=== PATIENT | male | born 1935 | race Caucasian/White ===

== ENCOUNTER 2021-07-09 05:16 | Inpatient (IN) ==
[2021-07-09 05:54] LABS: Basophils # 0.1 K/mcL (0.0-0.2); Basophils % 0.3 %; Eosinophils # 0.1 K/mcL (0.0-0.6); Eosinophils % 0.6 %; Hematocrit 29.2 % (37.5-50.1); Hemoglobin 9.2 g/dL (12.9-16.9); Immature Granulocytes % 0.9 % (0-4); Lymphocytes % 13.5 %; Mean Corpuscular HGB Conc 31.5 g/dL (31.6-35.5); Mean Corpuscular Volume 95.1 fL (83.0-100.0); Mean Platelet Volume 11.7 fL (9.4-12.4); Monocytes # 0.8 K/mcL (0.0-1.3); Monocytes % 3.8 %; Neutrophils # 17.9 K/mcL (1.6-8.9); Platelet Count 207 K/mcL (140-400); Red Blood Count 3.07 M/mcL (4.19-5.50); Segmented Neutrophils % 80.9 %; White Blood Count 22.1 K/mcL (4.3-11.1)
[2021-07-09] MEDS ORDERED: Pantoprazole 40 MG VIAL IVP ONE (06:01)
[2021-07-09 06:06] LABS: INR 1.8; Prothrombin Time 20.3 Seconds (9.4-12.1)
[2021-07-09] MEDS ORDERED: [UNRECOGNIZED DRUG - OTHER] IVPB ONE (06:06)
[2021-07-09] MEDS ORDERED: WATER FOR INJ IVPB ONE (06:06)
[2021-07-09] MEDS ORDERED: HUM PROTHROMBIN CPLX IVPB ONE (06:06)
[2021-07-09 06:09] LABS: Activated Partial Thrombo Time 25.2 Seconds (26.0-36.0)
[2021-07-09 06:16] LABS: Albumin 2.7 g/dL (3.5-5.7); Bilirubin,Total 0.4 mg/dL (0.3-1.0); Calcium 8.7 mg/dL (8.6-10.3); Globulin 2.6 g/dL (2.4-3.5); Potassium 4.3 mEq/L (3.5-5.1); Total Protein 5.3 g/dL (6.4-8.9); Troponin I 0.03 ng/mL (< 0.04)
[2021-07-09 07:17] LABS: Bilirubin,Urine Negative (Negative); Blood,Urine Large (Negative); Clarity,Urine Turbid (Clear); Color,Urine Light-Red (Yellow); Glucose,Urine (UA) Normal (Normal); Ketones,Urine Negative (Negative); Leukocyte Esterase,Urine Large (Negative); Nitrite,Urine Negative (Negative); Protein,Urine 200 mg/dL (Neg-Trace); Specific Gravity,Urine 1.021 (1.010-1.025); Urobilinogen,Urine Normal (Normal)
[2021-07-09 07:37] LABS: RBC,Urine TNTC per hpf (0-3); Squamous Epithelial Cell,Urine Present per hpf (None-Few); WBC,Urine TNTC per hpf (0-3)
[2021-07-09 07:38] LABS: Bacteria,Urine Present per hpf (None-Few)
[2021-07-09] MEDS ORDERED: 0.9 % Sodium Chloride 500 ML ONE (07:46)
[2021-07-09] MEDS ORDERED: Acetaminophen 325 MG TABLET PO PRN (08:36)
[2021-07-09] MEDS ORDERED: Ondansetron 4 MG/2 ML VIAL IVP PRN (08:36)
[2021-07-09] MEDS ORDERED: Naloxone 0.4 MG/ML INJ IVP PRN (08:36)
[2021-07-09] MEDS ORDERED: D5% in Water 1,000 ML IVC PRN (08:39)
[2021-07-09] MEDS ORDERED: Saliva Stimulant 44.3ml BOTTLE PO PRN (08:39)
[2021-07-09] MEDS ORDERED: *HR* Dextrose 50 % in Water (Syg) 50 ML SYRINGE IVP PRN (08:39)
[2021-07-09] MEDS ORDERED: Dextrose Gel 15 GM/37.5 ML TUBE PO PRN ×2 (08:39)
[2021-07-09 08:59] LABS: Influenza A PCR Negative (Negative); Influenza B PCR Negative (Negative); Resp. Syncytial Virus PCR Negative (Negative)
[2021-07-09 09:00] LABS: SARS-CoV-2 by PCR (In House) Negative (Negative)
[2021-07-09] MEDS: Pantoprazole 40 MG VIAL IVP SCH ×2 (11:40→20:22)
[2021-07-09] MEDS: Octreotide 400 MCG in 0.9 % Sodium Chloride 100 ML IVC SCH ×2 (11:45→21:24)
[2021-07-09] MEDS ORDERED: *HR* FentaNYL (PF) 100 MCG/2 ML VIAL IVP PRN (12:47)
[2021-07-09] MEDS ORDERED: *HR* HYDROmorphone PF 0.5 MG/0.5 ML SYRINGE IVP PRN (12:47)
[2021-07-09] MEDS ORDERED: Lidocaine -MPF 2% 2 ML VIAL ONE (13:12)
[2021-07-09] MEDS ORDERED: *HR* Propofol 200 MG/20 ML VIAL IVP ONE (13:13)
[2021-07-09] MEDS ORDERED: *HR* EPINEPHrine 1 MG/10 ML SYRINGE IVP PRN (14:05)
[2021-07-09] MEDS ORDERED: Melatonin 3 MG TABLET PO PRN (21:00)
[2021-07-09] MEDS: 0.9 % Sodium Chloride 1,000 ML IVC SCH (21:29)
[2021-07-10] MEDS: 0.9 % Sodium Chloride 1,000 ML IVC SCH (03:35)
[2021-07-10 05:21] LABS: Hematocrit 26.9 % (37.5-50.1); Hemoglobin 8.7 g/dL (12.9-16.9); Mean Corpuscular HGB Conc 32.3 g/dL (31.6-35.5); Mean Corpuscular Hemoglobin 30.7 pg (28.0-33.3); Mean Corpuscular Volume 95.1 fL (83.0-100.0); Mean Platelet Volume 11.9 fL (9.4-12.4); Platelet Count 155 K/mcL (140-400); Red Blood Count 2.83 M/mcL (4.19-5.50); Red Cell Distribution Width 14.6 % (11.5-14.5)
[2021-07-10 05:22] LABS: White Blood Count 7.8 K/mcL (4.3-11.1)
[2021-07-10 05:31] LABS: INR 1.3; Prothrombin Time 14.7 Seconds (9.4-12.1)
[2021-07-10 05:32] LABS: Activated Partial Thrombo Time 26.5 Seconds (26.0-36.0)
[2021-07-10 05:42] LABS: Calcium 8.2 mg/dL (8.6-10.3); Magnesium 1.8 mg/dL (1.6-2.6); Phosphorous 4.2 mg/dL (2.7-4.5); Potassium 5.3 mEq/L (3.5-5.1)
[2021-07-10 05:47] LABS: Iron 76 mcg/dL (65-175)
[2021-07-10 05:58] LABS: Ferritin 141 ng/mL (20-250)
[2021-07-10 06:06] LABS: Folate 19.1 ng/mL (3.0-16.0)
[2021-07-10 06:07] LABS: % Iron Saturation 45 % (20-55); Transferrin 120 mg/dL (203-362)
[2021-07-10] MEDS: Pantoprazole 40 MG VIAL IVP SCH ×2 (06:36→16:47)
[2021-07-10] MEDS ORDERED: cefTRIAXone 2,000 MG in 0.9 % Sodium Chloride Mini Bag 100 ML IVPB SCH (09:00)
[2021-07-10] MEDS ORDERED: cefTRIAXone 1,000 MG in Water for inj. (sterile) 10 ML IVP SCH (09:00)
[2021-07-10] MEDS: Piperacillin/Tazobactam 3.375 GM in 0.9 % Sodium Chloride Mini Bag 100 ML IVPB SCH ×2 (09:31→16:47)
[2021-07-10] MEDS: *HR* HYDROcodone/Acet 5/325 mg TABLET PO PRN (09:34)
[2021-07-10] MEDS: Hyoscyamine SL 0.125 MG TAB.SUBL SL PRN ×3 (12:33→20:57)
[2021-07-11] MEDS: Piperacillin/Tazobactam 3.375 GM in 0.9 % Sodium Chloride Mini Bag 100 ML IVPB SCH ×3 (00:12→15:37)
[2021-07-11] MEDS: Hyoscyamine SL 0.125 MG TAB.SUBL SL PRN ×4 (03:15→23:21)
[2021-07-11] MEDS: Pantoprazole 40 MG VIAL IVP SCH ×2 (06:00→16:55)
[2021-07-11 07:35] LABS: Hematocrit 27.5 % (37.5-50.1); Hemoglobin 8.6 g/dL (12.9-16.9); Mean Corpuscular HGB Conc 31.3 g/dL (31.6-35.5); Mean Corpuscular Hemoglobin 30.2 pg (28.0-33.3); Mean Corpuscular Volume 96.5 fL (83.0-100.0); Mean Platelet Volume 11.6 fL (9.4-12.4); Platelet Count 150 K/mcL (140-400); Red Blood Count 2.85 M/mcL (4.19-5.50); Red Cell Distribution Width 14.4 % (11.5-14.5); White Blood Count 8.1 K/mcL (4.3-11.1)
[2021-07-11 07:53] LABS: Calcium 8.5 mg/dL (8.6-10.3); Magnesium 1.8 mg/dL (1.6-2.6); Potassium 4.4 mEq/L (3.5-5.1)
[2021-07-11] MEDS: Finasteride 5 MG TABLET PO SCH (08:50)
[2021-07-11] MEDS: Aspirin 81 MG TAB.CHEW PO SCH (08:50)
[2021-07-11] MEDS: allopurinoL 100 MG TABLET PO SCH (08:50)
[2021-07-11] MEDS: *HR* HYDROcodone/Acet 5/325 mg TABLET PO PRN ×2 (08:50→15:03)
[2021-07-11 16:01] LABS: Influenza A PCR Negative (Negative); Influenza B PCR Negative (Negative); Resp. Syncytial Virus PCR Negative (Negative)
[2021-07-11 16:21] LABS: SARS-CoV-2 by PCR (In House) Negative (Negative)
[2021-07-12] MEDS: Pantoprazole 40 MG VIAL IVP SCH (05:21)
[2021-07-12] MEDS: Aspirin 81 MG TAB.CHEW PO SCH (09:54)
[2021-07-12] MEDS: Finasteride 5 MG TABLET PO SCH (09:54)
[2021-07-12] MEDS: allopurinoL 100 MG TABLET PO SCH (09:54)
[2021-07-12 19:02] VITALS: BP 162/97; PULSE 62; TEMP 98.1; O2SAT 97
[2021-07-12] MEDS ORDERED: Amoxicillin 250 MG CHEWABLE TABLET PO SCH (21:00)
[2021-07-12] MEDS ORDERED: Amoxicillin 500 MG CAPSULE PO SCH (21:00)
== END 2021-07-12 19:49 | DRG 871 ==
LOC: 2NENU 05:16 → EMEROOARM 05:16 → SUATTDRO 09:25 → 2NENU 09:53 → 3ANU 07-11 05:53
PROVIDERS: ADMIT Internal Medicine; ATTEND Internal Medicine